=== PATIENT | female | born 1970 | race Caucasian/White ===

== ENCOUNTER 2024-08-23 14:32 | Emergency (ER) | payer MEDICAID ==
[~2024-08-23] VITALS: Ht 157.5 cm; Wt 85.0 kg
[2024-08-23 15:32] LABS: BASOPHILS 0.1 % (0-2); EOSINOPHILS 0.5 % (0-6); HEMATOCRIT 40.5 % (35.0-50.0); LYMPHOCYTES 13.3 % (24-44); MCH 32.6 (27-36); MCHC 34.5 g/dl (30-36); MCV 94.6 fl (81-99); MONOCYTES 10.4 % (0-12); NEUTROPHILS 75.7 % (39-80); PLATELET COUNT 309 K/uL (140-440); RBC 4.28 M/ul (4.3-5.7); RDW 12.3 (10.5-15.0)
[2024-08-23 15:55] LABS: ACETAMINOPHEN 0 ug/mL (10-30); ALBUMIN 3.4 g/dL (3.4-5.0); ALBUMIN/GLOBULIN RATIO 0.81 (1.1-2.4); ALCOHOL, MEDICAL <3 ng/dL (<3); ALKALINE PHOSPHATASE 104 U/L (46-116); ALT (SGPT) 34 U/L (14-59); AST (SGOT) 50 U/L (15-37); BILIRUBIN, TOTAL 0.8 ng/dL (0.2-1.0); BUN/CREATININE RATIO 14.73 (6.0-28.6); CARBON DIOXIDE 28 mmol/L (21-32); CHLORIDE 101 mmol/L (98-107); CREATININE, SERUM 0.95 mg/dL (0.55-1.02); GLOMERULAR FILTRATION RATE,EST 72 mL/min (>60); PROTEIN, TOTAL 7.6 g/dL (6.4-8.2); SALICYLATE 2.3 mg/dL (2.8-20.0); TSH, 3RD GENERATION 1.203 uIU/mL (0.358-3.740); UREA NITROGEN 14 mg/dL (7-18)
[2024-08-23 21:07] LABS: BILIRUBIN, URINE POSITIVE (negative); BLOOD/HGB, URINE NEGATIVE (Negative); KETONE, URINE SMALL (Negative); LEUK ESTERASE, URINE NEGATIVE (negative); NITRITE, URINE NEGATIVE (negative)
[2024-08-23 21:15] LABS: EPITHELIAL CELLS, URINE SQUAMOUS 2+ /lpf (0-1+); RED BLOOD CELLS, URINE 0-1 /hpf (0-5); WHITE BLOOD CELLS, URINE 0-1 /HPF (0-5)
[2024-08-23 21:16] LABS: BACTERIA, URINE NONE SEEN /hpf (negative); CASTS, URINE NONE SEEN \\lpf; COLLECTION TYPE, URINE CLEAN CATCH; CRYSTALS, URINE NONE SEEN (0-1+); REFLEX CULTURE, URINE No (No)
[2024-08-23 21:22] LABS: AMPHETAMINES, URINE NEGATIVE (NEGATIVE); BARBITURATES, URINE NEGATIVE (NEGATIVE); BENZODIAZEPINE, URINE NEGATIVE (NEGATIVE); BUPRENORPHINE, URINE NEGATIVE (NEGATIVE); CANNABINOID, URINE NEGATIVE (NEGATIVE); COCAINE, URINE POSITIVE (NEGATIVE); ECSTASY, URINE NEGATIVE (NEGATIVE); FENTANYL, URINE NEGATIVE (NEGATIVE); METHADONE, URINE NEGATIVE (NEGATIVE); OPIATES, URINE NEGATIVE (NEGATIVE); OXYCODONE, URINE NEGATIVE (NEGATIVE); PHENCYCLIDINE, URINE NEGATIVE (NEGATIVE)
[2024-08-24 13:10] VITALS: BP 102/62
== END 2024-08-24 13:14 | disposition home or self-care (01) ==
LOC: ED 14:32
PROVIDERS: Emergency Medicine
DX: F29 Unspecified psychosis not due to a substance or known physiological condition (principal)
CPT/HCPCS: 36415; 80053; 80307; 81001; 84443; 84703; 85025; 99284; G0480